=== PATIENT | male | born 1990 | race African-American/Black ===

== ENCOUNTER 2017-10-01 11:25 | Emergency (ER) | payer SELFPAY ==
[~2017-10-01 11:25] MED LIST: ISOVUE-370 76%-LOCM 1 ML ONE
[2017-10-01] MEDS ORDERED: Sucralfate 1 GM/10 ML UDCUP ONE (11:46)
[2017-10-01 12:06] LABS: #Eosinphils 0.2 thou/uL (0.0-0.7); #Lymphocytes 0.4 thou/uL (1.20-3.40); #Monocytes 0.3 thou/uL (0.11-0.59); #Neutrophils 4.9 thou/uL (1.40-6.50); %Basophils 0.1 % (0.0-1.0); %Eosinophils 2.9 % (0.0-10.0); %Lymphocytes 7.1 % (21.0-51.0); %Monocytes 4.6 % (0.0-10.0); %Neutrophils 85.4 % (42.0-75.0); Hemoglobin 17.3 g/dL (14.0-18.0); Mean Corpuscular HGB CONC 33.5 g/dL (32.0-36.0); Mean Corpuscular Volume 92.6 fL (78.0-98.0); Mean Platelet Volume 6.9 fL (7.4-10.4); Platelet Count 127 thou/uL (130-400); RBC Distribution Width 11.1 % (11.5-14.5); Red Blood Cell (RBC) Count 5.59 mill/uL (4.70-6.10); White Blood Cell (WBC) Count 5.8 thou/uL (4.8-10.8)
[2017-10-01 12:25] LABS: ALT (SGPT) 13 U/L (8-55); AST (SGOT) 19 U/L (5-34); Alkaline Phosphatase 93 U/L (40-150); Anion Gap 13 mmol/L (10-20); BUN (Urea Nitrogen) 15 mg/dL (8.9-20.6); Bilirubin, Total 0.8 mg/dL (0.2-1.2); Calc. Creatinine Clearance 0 mL/min (70-130); Calcium 10.1 mg/dL (7.8-10.44); Carbon Dioxide 25 mmol/L (22-29); Chloride 105 mmol/L (98-107); Estimated GFR-MDRD 79; Globulin 2.8 g/dL (2.4-3.5); Glucose 100 mg/dL (70-105); Lipase 283 U/L (8-78); Potassium 3.8 mmol/L (3.5-5.1); Protein, Total 7.8 g/dL (6.0-8.3); Sodium 139 mmol/L (136-145)
--- NOTE | 2017-10-01 13:20 | CT ---
CT ABDOMEN AND PELVIS WITH IV CONTRAST: HISTORY: Left upper abdominal pain. FINDINGS: The lung bases are clear. Liver, spleen, pancreas, adrenal glands, and kidneys are unremarkable. Th ere is dilatation of the pancreatic duct measuring 4 mm. No calcified gallstones are noted. No free air, free fluid, or lymphadenopathy is seen in the abdomen or pelvis. Absence of oral contrast reduces the sensitivity of the exam for evaluation of bowel. The appendix is likely normal. However, if there is clinical suspicion for appendicitis, exam should be repeated with oral contrast. No acute osseous abnormalities are seen. IMPRESSION: Findings are suggestive of enterocolitis. POS: [facility]
[2017-10-01 13:27] LABS: Bilirubin Small (Negative); Blood, Urine Negative (Negative); Clarity CLEAR (Clear); Glucose, Urine (Dipstick) Negative (Negative); Leukocyte Negative (Negative); Nitrite Negative (Negative); Protein, Urine (Dipstick) Negative (Neg-Trace); Specific Gravity, Urine 1.033 (1.002-1.036); Urobilinogen 0.2 mg/dL (0.2-1.0)
== END 2017-10-01 13:10 | disposition home or self-care (01) ==
LOC: ERS 11:25
DX: R10.12 Left upper quadrant pain (principal); R10.32 Left lower quadrant pain
CPT/HCPCS: 74177; 80053; 81003; 83690; 85025; 96360

== ENCOUNTER 2018-06-19 19:42 | Emergency (ER) | payer SELFPAY ==
[2018-06-19 20:08] LABS: #Basophils 0.1 thou/uL (0.0-0.2); #Eosinphils 0.3 thou/uL (0.0-0.7); #Lymphocytes 2.6 thou/uL (1.20-3.40); #Monocytes 0.5 thou/uL (0.11-0.59); #Neutrophils 4.6 thou/uL (1.40-6.50); %Basophils 1.4 % (0.0-1.0); %Eosinophils 3.3 % (0.0-10.0); %Lymphocytes 31.9 % (21.0-51.0); %Monocytes 6.4 % (0.0-10.0); Hemoglobin 15.9 g/dL (14.0-18.0); Mean Corpuscular HGB CONC 33.6 g/dL (32.0-36.0); Mean Corpuscular Hemoglobin 31.9 pg (27.0-31.0); Mean Corpuscular Volume 95.2 fL (78.0-98.0); Mean Platelet Volume 7.3 fL (7.4-10.4); Platelet Count 182 thou/uL (130-400); RBC Distribution Width 11.1 % (11.5-14.5); Red Blood Cell (RBC) Count 4.98 mill/uL (4.70-6.10)
[2018-06-19 20:09] LABS: Bilirubin Negative (Negative); Blood, Urine Negative (Negative); Clarity CLEAR (Clear); Glucose, Urine (Dipstick) Negative (Negative); Leukocyte Negative (Negative); Nitrite Negative (Negative); Protein, Urine (Dipstick) Negative (Neg-Trace); Specific Gravity, Urine 1.025 (1.002-1.036)
[2018-06-19 20:32] LABS: ALT (SGPT) 17 U/L (8-55); AST (SGOT) 20 U/L (5-34); Albumin 4.9 g/dL (3.5-5.0); Alkaline Phosphatase 86 U/L (40-150); Anion Gap 13 mmol/L (10-20); BUN (Urea Nitrogen) 15 mg/dL (8.9-20.6); Bilirubin, Total 0.5 mg/dL (0.2-1.2); Calc. Creatinine Clearance 0 mL/min (70-130); Calcium 10.4 mg/dL (7.8-10.44); Carbon Dioxide 30 mmol/L (22-29); Chloride 102 mmol/L (98-107); Estimated GFR-MDRD 81; Globulin 2.7 g/dL (2.4-3.5); Glucose 109 mg/dL (70-105); Potassium 4.1 mmol/L (3.5-5.1); Protein, Total 7.6 g/dL (6.0-8.3); Sodium 141 mmol/L (136-145)
[2018-06-19 23:09] LABS: MONO NEGATIVE CONTROL ZONE White (Negative) (White); MONO POSITIVE CONTROL Pink Line (Positive) (PINK/RED); Mononucleosis NEGATIVE (NEGATIVE)
[2018-06-19] MEDS ORDERED: Haloperidol Lactate 5 MG/ML VIAL ONE (23:15)
--- NOTE | 2018-06-20 | ULT ---
ULTRASOUND GALLBLADDER RIGHT UPPER QUADRANT 06/19/18 HISTORY: Abdominal pain. COMPARISON: None. TECHNIQUE: Real time leonard scale and color evaluation of the right upper quadrant of the abdomen was performed. FINDINGS: The hepatic echotexture is normal. Liver measures 14.3 cm in length. Gallbladder wall thickness is no rmal. No pericholecystic fluid. Sonographic Fagan's sign is negative. Common bile duct is normal tammy suring 2 mm. Pancreas appears normal where seen. Right kidney measures 10.2 x 5.6 x 5.3 cm without mass, hydroneph rosis or abnormal calcifications. IMPRESSION: Normal exam. POS: [facility]
== END 2018-06-20 00:28 | disposition home or self-care (01) ==
LOC: ERS 19:42
DX: R10.12 Left upper quadrant pain (principal); Z71.6 Tobacco abuse counseling; Z87.891 Personal history of nicotine dependence; Z79.899 Other long term (current) drug therapy
CPT/HCPCS: 36415; 76705; 80053; 81003; 83690; 85025; 86308; 96374; 99406; J1630